=== PATIENT | female | born 1985 | race Caucasian/White ===

== ENCOUNTER 2023-01-09 13:04 | Observation (INO) | payer OTHER, SELFPAY ==
--- NOTE | 2023-01-09 08:19 | CONS_ITS ---
CONSULTATION DATE: ??01/09/2023 CHIEF COMPLAINT:? Abdominal pain. HISTORY OF PRESENT ILLNESS:? Patient is a 37-year-old female with history of bipolar disorder, hypertension, polycystic kidney disease, who presented to the emergency room today with acute onset of right lower quadrant abdominal pain.? She reports that she was well until late morning, after she got out of the shower, she developed acute onset of a sharp, stabbing pain in the right lower quadrant, quite low, down near the right groin area.? The pain was constant and persistent, was somewhat better when she would lean forward.? She had no associated nausea, vomiting or bowel changes.? She does report a normal bowel movement this morning that was formed without blood.? No melena.? She is eating normally, felt well yesterday and last evening.? Has had no ill contacts.? Because of the persistent pain, she presented to the emergency room where she underwent workup.? She had normal laboratory evaluation with a normal white blood cell count.? She underwent a CT scan of the abdomen and pelvis with IV contrast, which was personally reviewed.? It was read as a dilated, thickened appendix with possible mild fat stranding; however, on my review, I disagree with that interpretation.? She does have an elongated cecum, possibly due to her previous surgery which included a hysterectomy and , but the appendix itself does not appear dilated at all.? There is no fecalith.? No inflammatory changes.? There is a small amount of free fluid down in the pelvis, but not around the area of the appendix.? She was given IV antibiotics by the emergency room, before I talked to them; therefore, she was admitted for observation to monitor her pain or any signs of infection.? Denies aspirin, nonsteroidal anti- inflammatory drug use.? Since the onset of her pain, it is unchanged.? PAST SURGICAL HISTORY: She did have a laparoscopic hysterectomy in 2020.? According to the patient, she reports the ovaries were left in.? Prior to that, she had had a .? No other abdominal surgery. SOCIAL HISTORY:? She does smoke daily.? Patient drink alcohol socially, as well as use cannabis.? She is and a smoker. FAMILY HISTORY:? Positive for hypertension, COPD, congestive heart failure. REVIEW OF SYSTEMS:? Ten system review of systems is negative for recent weight loss or weight gain.? She denies increased fatigue or light-headedness.? Has had no earache or tinnitus.? No sinus congestion.? No sore throat or hoarseness.? No chest pain, palpitations or syncope.? No chronic cough, shortness of breath or hemoptysis.? She has had the abdominal pain.? No nausea or vomiting.? No diarrhea.? No decreased caliber of stool.? No melena, hematochezia or bright red blood per rectum.? No dysuria, frequency, urgency or hematuria.? No headaches, seizures or tremors.? No easy bruising or bleeding.? No heat or cold intolerance.? No polydipsia, polyphagia or polyuria. PHYSICAL EXAM:? VITAL SIGNS:? She is afebrile.? Blood pressure is 151/93. ?Heart rate is 62 and regular.? Respiratory rate is 18.? O2 saturation is 98% on room air.? GENERAL:? In general, she is a well developed, well nourished female, in no acute distress. HEENT:? Normocephalic, atraumatic.? Sclerae anicteric.? Conjunctiva not injected.? Oral mucosa is moist. NECK:? Supple.? There is no adenopathy, thyromegaly or JVD. LUNGS:? Clear bilaterally.? CARDIAC EXAM:? Regular rhythm and rate without appreciable murmurs, rubs or gallops. ABDOMEN:? Obese.? There are normal bowel sounds.? It is non-distended.? There is mild tenderness, somewhat subjective, in the very lower right lower quadrant, in the area of a her scar, lateral aspect.? There are no palpable masses or skin changes.? No hernias noted.? No CVA tenderness.? SKIN:? Warm and dry without lesions, rashes or ulcers. NEURO EXAM:? Non-focal.? Non-lateralizing.? Patient is awake, alert, oriented with appropriate affect. ASSESSMENT:? A 37-year-old female with acute onset of sharp, low, right side abdominal pain in the area of previous scar.? Overall history, laboratory findings and CT findings are not consistent with acute appendicitis.? Most likely, this represents either scar tissue, small ovarian cyst.? Since she has already been treated with antibiotics, I would recommend continuing these so as not to complicate the picture.? Certainly, early appendicitis, which I do not believe this, can be treated well and adequately with antibiotics.? So, likely continue these for five days.? As long as she is doing well tomorrow, she should be able to be discharged on a course of outpatient Augmentin, and I would follow up with her as an outpatient, in the office, to make sure her symptoms have resolved.? Overall, I think changes interpreted by the radiologist were all due to patient?s previous surgery and do not represent any acute inflammatory process in the appendix.? CC:? Sarwat Verma M.D. ? MTDDiamond
[2023-01-09 13:10] VITALS: BP 131/71; PULSE 50; RESP 16; TEMP 36.4; O2SAT 99; BMI 38.3
--- NOTE | 2023-01-09 13:19 | ED_ITS ---
HPI - Abdominal Pain General Chief Complaint: Abdominal Pain Stated Complaint: RIGHT SIDE PAIN Time Seen by Provider: 01/09/23 13:10 Source: patient Mode of arrival: Wheelchair Limitations: no limitations History of Present Illness HPI narrative: patient is a 37-year-old female with a history of previous hysterectomy who presents to the emergency department for the evaluation of right lower quadrant pain that began this morning. She states the pain began suddenly. She states the pain is worse with movement and walking. She has been nauseous but has had no vomiting or diarrhea. She denies urinary symptoms. She has had no fevers or upper respiratory symptoms. No medications taken prior to arrival. She denies any other abdominal surgeries other than hysterectomy two years ago. Related Data Home Medications Medication Instructions Recorded Confirmed amlodipine 10 mg tablet mg 01/09/23 buspirone 5 mg tablet mg 01/09/23 carvedilol 12.5 mg tablet mg 01/09/23 olanzapine 5 mg tablet mg 01/09/23 Allergies Allergy/AdvReac Type Severity Reaction Status Date / Time No Known Drug Allergies Allergy Verified 01/09/23 13:10 Review of Systems ROS Constitutional Denies: fever or chills Ears, nose, mouth, and throat Denies: throat pain or neck pain Cardiovascular Denies: chest pain Respiratory Denies: shortness of breath or cough Gastrointestinal Reports: abdominal pain and nausea; Denies: vomiting Genitourinary Denies: painful urination Musculoskeletal Denies: back pain or neck pain Integumentary/Breast Denies: rash Neurological Denies: headache PFSH PFSH Social History Smoking status: Current every day smoker Exam Narrative Exam Narrative: Gen.: Awake, alert, in no distress Head: Normocephalic, atraumatic ENT: Moist mucous membranes Respiratory: No respiratory distress Gastrointestinal: Abdomen is soft, obese, tender in the suprapubic and right lower quadrant of the abdomen with guarding Extremities: Moves extremities equally Psych: Normal mood and affect Neuro: No focal neuro deficit Skin: Warm, dry, intact Constitutional Vital Signs - 24 hr 01/09/23 13:10 Temperature 97.6 F Pulse Rate [Monitor] 50 L Respiratory Rate 16 Blood Pressure [Right Arm] 131/71 H Pulse Oximetry 99 Course Vital Signs Vital signs: Vital Signs Temperature 97.6 F 01/09/23 13:10 Pulse Rate 50 L 01/09/23 13:10 Respiratory Rate 16 01/09/23 13:10 Blood Pressure 131/71 H 01/09/23 13:10 Pulse Oximetry 99 01/09/23 13:10 Temperature 97.6 F 01/09/23 13:10 Pulse Rate 50 L 01/09/23 13:10 Respiratory Rate 16 01/09/23 13:10 Blood Pressure 131/71 H 01/09/23 13:10 Pulse Oximetry 99 01/09/23 13:10 MDM - Abdominal Pain MDM Narrative Medical decision making narrative: patient medicated with IV Dilaudid, Toradol, Zofran. Lab studies show no leukocytosis, otherwise unremarkable. CT of the abdomen with IV contrast shows a patient has acute appendicitis without complication. She is treated with IV Zosyn and general surgery was contacted. she had a couple of coffee at 8:30am and some water prior to arrival, she has not eaten today. Dr. Bedolla requested that the patient be admitted to hospitalist service with general surgery consult. Patient admitted at this time to Dr. Verma for further evaluation and treatment. Medical Records Attestation: I reviewed the patient's medical records. Lab Data Attestation: I reviewed the patient's lab results. Labs: Lab Results 01/09/23 01/09/23 Range/Units 13:26 15:30 WBC 9.4 (4.0-11.0) 10^3/uL RBC 4.76 (4.20-5.40) 10^6/uL Hgb 14.2 (12.0-16.0) g/dL Hct 42.9 (36.0-48.0) % MCV 90.1 (81.0-99.0) fL MCH 29.8 (26.7-34.0) pg MCHC 33.1 (29.9-35.2) g/dL RDW 13.0 (11.0-15.0) % Plt Count 337 (150-450) 10^3/uL MPV 9.9 (9.5-13.5) fL Neut % (Auto) 72.6 (43.0-75.0) % Lymph % (Auto) 18.9 L (20.5-60.0) % [place] % (Auto) 6.2 (1.7-12.0) % Eos % (Auto) 1.5 (0.9-7.0) % Baso % (Auto) 0.5 (0.2-2.0) % Neut # (Auto) 6.8 H (1.4-6.5) 10^3/uL Lymph # (Auto) 1.8 (1.2-3.8) 10^3/uL [place] # (Auto) 0.6 (0.3-0.8) 10^3/uL Eos # (Auto) 0.1 (0.0-0.7) 10^3/uL Baso # (Auto) 0.1 (0.0-0.1) 10^3/uL Abs Immat Gran (auto) 0.03 (0.00-0.03) 10^3/uL Imm/Tot Granulo (auto) 0.3 (0.0-0.5) % Sodium 137 (136-145) mmol/L Potassium 3.6 (3.5-5.1) mmol/L Chloride 103 (98-107) mmol/L Carbon Dioxide 24.6 (21.0-32.0) mmol/L Anion Gap 13.0 BUN 10.0 (7.0-18.0) mg/dL Creatinine 0.94 (0.55-1.02) mg/dL Est GFR ( Amer) >60 (>=60) Est GFR (Non-Af Amer) >60 (>=60) BUN/Creatinine Ratio 10.6 Glucose 112 H (74-106) mg/dL Lactate 1.2 (0.4-2.0) mmol/L Calcium 9.3 (8.5-10.1) mg/dL Total Bilirubin 0.4 (0.2-1.0) mg/dL AST 17 (15-37) U/L ALT 14 (14-59) U/L Alkaline Phosphatase 108 (46-116) U/L Total Protein 7.5 (6.4-8.2) g/dL Albumin 3.8 (3.4-5.0) g/dL Globulin 3.7 g/dL Albumin/Globulin Ratio 1.0 Lipase 62.0 L (73.0-393.0) U/L Urine Color Lt. yellow (YELLOW) Urine Clarity Clear (CLEAR) Urine pH 7.0 (5.0-9.0) Ur Specific [place] 1.010 (1.005-1.025) Urine Protein Negative (NEG/TRACE) mg/dL Urine Glucose (UA) Negative (NEGATIVE) mg/dL Urine Ketones 15 A (NEGATIVE) mg/dL Urine Occult Blood Negative (NEGATIVE) Urine Nitrite Negative (NEGATIVE) Urine Bilirubin Negative (NEGATIVE) Urine Urobilinogen 0.2 (0.2-1.0) EU/dL Ur Leukocyte Esterase Negative (NEGATIVE) Imaging Data CT scan - abdomen: Attestation: I have reviewed the pertinent imaging results. Discharge Plan Discharge Chief Complaint: Abdominal Pain Clinical Impression: Acute appendicitis Patient Disposition: Admitted as Observation Time of Disposition Decision: 15:24 Condition: Good
[2023-01-09] MEDS: ONDANSETRON PF 4 MG/2 ML VIAL IV (13:30)
[2023-01-09] MEDS: 0.9 % SODIUM CHLORIDE 1,000 ML 1000 ML IV (13:30)
[2023-01-09] MEDS: HYDROMORPHONE HCL 0.5 MG/0.5 ML SYRINGE 1 MG IV (13:30)
[2023-01-09 13:37] LABS: Basophils Absolute Auto 0.1 10^3/uL (0.0-0.1); Basophils Percent Auto 0.5 % (0.2-2.0); Eosinophils Absolute Auto 0.1 10^3/uL (0.0-0.7); Eosinophils Percent Auto 1.5 % (0.9-7.0); Hematocrit 42.9 % (36.0-48.0); Hemoglobin 14.2 g/dL (12.0-16.0); Immature Granulocytes Abs Auto 0.03 10^3/uL (0.00-0.03); Immature Granulocytes Pct Auto 0.3 % (0.0-0.5); Lymphocytes Absolute Auto 1.8 10^3/uL (1.2-3.8); Lymphocytes Percent Auto 18.9 % (20.5-60.0); Mean Corpuscular HGB Conc 33.1 g/dL (29.9-35.2); Mean Corpuscular Hemoglobin 29.8 pg (26.7-34.0); Mean Corpuscular Volume 90.1 fL (81.0-99.0); Mean Platelet Volume 9.9 fL (9.5-13.5); Monocytes Absolute Auto 0.6 10^3/uL (0.3-0.8); Monocytes Percent Auto 6.2 % (1.7-12.0); Neutrophils Absolute Auto 6.8 10^3/uL (1.4-6.5); Neutrophils Percent Auto 72.6 % (43.0-75.0); Platelet Count 337 10^3/uL (150-450); Red Blood Count 4.76 10^6/uL (4.20-5.40); White Blood Count 9.4 10^3/uL (4.0-11.0)
[2023-01-09 13:52] LABS: Alanine Aminotransferase 14 U/L (14-59); Albumin Level 3.8 g/dL (3.4-5.0); Alkaline Phosphatase 108 U/L (46-116); Aspartate Amino Transferase 17 U/L (15-37); BUN Creatinine Ratio 10.6; Bilirubin Total 0.4 mg/dL (0.2-1.0); Calcium 9.3 mg/dL (8.5-10.1); Carbon Dioxide 24.6 mmol/L (21.0-32.0); Chloride 103 mmol/L (98-107); Estimated GFR (African America >60 (>=60); Estimated GFR (Non-African Ame >60 (>=60); Globulin 3.7 g/dL; Glucose 112 mg/dL (74-106); Potassium 3.6 mmol/L (3.5-5.1); Sodium 137 mmol/L (136-145); Total Protein 7.5 g/dL (6.4-8.2)
[2023-01-09 13:54] LABS: Lactate/Lactic Acid 1.2 mmol/L (0.4-2.0)
--- NOTE | 2023-01-09 14:00 | CT_ITS ---
The [address] [address] Patient Name: BENEDICT FERREIRA MRN: [id number] date: 1985 Sex: F Assigned Patient Location: ER Current Patient Location: ER Accession/Order Number: [id number] Exam Date: 01/09/2023 14:17 Report Date: 01/09/2023 14:45 At the request of: JOLENE OBANDO Procedure: CT abdomen pelvis w con EXAM: CT abdomen pelvis w con HISTORY: acute appendicitis COMPARISON: None. TECHNIQUE: Axial CT images were obtained of the abdomen and pelvis with intravenous contrast. Multiplanar reconstructions were performed. ABDOMEN/PELVIS FINDINGS: Lower Chest: Unremarkable. Liver: Normal enhancement and contour. Biliary/Gallbladder: Unremarkable. Pancreas: Unremarkable. Spleen: Unremarkable. Adrenal Glands: Unremarkable. Kidneys: Numerous small cysts are present in the kidneys bilaterally, most of which are too small to characterize. No renal calculus or hydronephrosis is identified.. Gastrointestinal/Peritoneum: The appendix is abnormally dilated and thick-walled measuring 1.5 cm in diameter. There is trace periappendiceal fat stranding. There are no dilated loops of bowel. No abscess or free air. There is a trace volume of free fluid in the pelvis. Vascular: Unremarkable. Lymph Nodes: No enlarged lymph nodes by CT size criteria. Pelvic Organs: Prior hysterectomy. Bladder: Unremarkable. Bones: No acute osseous abnormality. Soft tissues: Unremarkable. IMPRESSION: 1. Acute appendicitis without complication. 2. Small volume of free fluid in the pelvis. 3. Prior hysterectomy. 4. Numerous small cysts present in the kidneys, possibly due to genetic or acquired renal conditions. Electronically authenticated by: ROBERTA SANCHEZ Date: 01/09/2023 14:45
[2023-01-09] MEDS: KETOROLAC TROMETHAMINE 30 MG/ML VIAL IVP ×2 (15:07→21:59)
[2023-01-09] MEDS: PIPERACILLIN SODIUM/TAZOBACTAM 4.5 GM in 0.9 % SODIUM CHLORIDE 50 ML IV (15:08)
[2023-01-09 15:38] LABS: Bilirubin Urine NEGATIVE (NEGATIVE); Blood Urine NEGATIVE (NEGATIVE); Clarity Urine CLEAR (CLEAR); Color Urine LT. YELLOW (YELLOW); Glucose Urine UA NEGATIVE (NEGATIVE); Ketones Urine 15 mg/dL (NEGATIVE); Leukocyte Esterase Urine NEGATIVE (NEGATIVE); Nitrite Urine NEGATIVE (NEGATIVE); Protein Urine NEGATIVE (NEG/TRACE); Urine Microscopic Indicated NO; Urobilinogen Urine 0.2 EU/dL (0.2-1.0)
[2023-01-09 17:20] VITALS: BP 151/93; PULSE 52; RESP 20; TEMP 36.8; O2SAT 98; BMI 37.8
[2023-01-09] MEDS: LACTATED RINGER'S SOLUTION 1,000 ML 125 ML IV (18:30)
--- NOTE | 2023-01-09 18:30 | PM.GSCN ---
History of Present Illness Consult details Consult date: 01/09/23 Reason for consult: abdominal pain Requesting physician: Sarwat Verma Narrative: patient seen/examined/chart and ct scan images reviewed/consult dictated; no evidence of acute appendicitis by history, labs or ct images; no evidence of dilation or inflammation of the appendix, radiology findings likely due to elongated cecum/ chronic changes from previous abd operations; since she has already received antibiotics, I would continue them for 5 days, early uncomplicated appendicitis, which I don't think this is, can be well treated with antibiotics alone; I will recheck her in the morning. [facility] Medical History (Updated 01/09/23 @ 17:52 by Marin Bedolla MD) Surgical History (Updated 01/09/23 @ 17:41 by Elodia Gardner) Family History (Updated 01/09/23 @ 17:48 by Elodia Gardner) Father Family history of CHF (congestive heart failure) Mother Family history of cancer Other Family history of hypertension Social History (Updated 01/09/23 @ 17:47 by Elodia Gardner) Within the past year, how often did you have a drink containing alcohol: 2-4 times a month Within the past year, how often did you have six or more drinks on one occasion: never Smoking status: Current every day smoker Non-prescribed substance use: cannabis (any form) Previous occupational history: [employer] Highest level of school completed/degree received: Associate degree: academic program Do you want help with school or training: No Are you now , , , , never or living with a partner: Little interest or pleasure in doing things: not at all Feeling down, depressed, or hopeless: not at all Feel stressed/tense/nervous/anxious/difficulty sleeping: only a little Do you think of yourself as: straight/heterosexual Gender Identity: female Meds Home Medications and Allergies Home Medications Medication Instructions Recorded Confirmed Type amlodipine 10 mg tablet 10 mg PO DAILY 01/09/23 01/09/23 History buspirone 5 mg tablet 5 mg PO DAILY 01/09/23 01/09/23 History carvedilol 12.5 mg tablet 12.5 mg PO DAILY 01/09/23 01/09/23 History olanzapine 5 mg tablet 5 mg PO DAILY 01/09/23 01/09/23 History Allergies Allergy/AdvReac Type Severity Reaction Status Date / Time No Known Drug Allergies Allergy Verified 01/09/23 13:10 Exam Constitutional Vital Signs - 24 hr 01/09/23 13:10 01/09/23 17:20 Temperature 97.6 F 98.2 F Pulse Rate 52 L Pulse Rate [Monitor] 50 L Respiratory Rate 16 20 Blood Pressure [Right Arm] 131/71 H 151/93 H Pulse Oximetry 99 98 Oxygen Delivery Method Room Air Results Labs Labs: Abnormal lab results 01/09/23 01/09/23 Range/Units 13:26 15:30 Lymph % (Auto) 18.9 L (20.5-60.0) % Neut # (Auto) 6.8 H (1.4-6.5) 10^3/uL Glucose 112 H (74-106) mg/dL Lipase 62.0 L (73.0-393.0) U/L Urine Ketones 15 A (NEGATIVE) mg/dL Diabetes panel 01/09/23 Range/Units 13:26 Sodium 137 (136-145) mmol/L Potassium 3.6 (3.5-5.1) mmol/L Chloride 103 (98-107) mmol/L Carbon Dioxide 24.6 (21.0-32.0) mmol/L BUN 10.0 (7.0-18.0) mg/dL Creatinine 0.94 (0.55-1.02) mg/dL Glucose 112 H (74-106) mg/dL Calcium 9.3 (8.5-10.1) mg/dL AST 17 (15-37) U/L ALT 14 (14-59) U/L Alkaline Phosphatase 108 (46-116) U/L Total Protein 7.5 (6.4-8.2) g/dL Albumin 3.8 (3.4-5.0) g/dL Calcium panel 01/09/23 Range/Units 13:26 Calcium 9.3 (8.5-10.1) mg/dL Albumin 3.8 (3.4-5.0) g/dL Pituitary panel 01/09/23 Range/Units 13:26 Sodium 137 (136-145) mmol/L Potassium 3.6 (3.5-5.1) mmol/L Chloride 103 (98-107) mmol/L Carbon Dioxide 24.6 (21.0-32.0) mmol/L BUN 10.0 (7.0-18.0) mg/dL Creatinine 0.94 (0.55-1.02) mg/dL Glucose 112 H (74-106) mg/dL Calcium 9.3 (8.5-10.1) mg/dL Adrenal panel 01/09/23 Range/Units 13:26 Sodium 137 (136-145) mmol/L Potassium 3.6 (3.5-5.1) mmol/L Chloride 103 (98-107) mmol/L Carbon Dioxide 24.6 (21.0-32.0) mmol/L BUN 10.0 (7.0-18.0) mg/dL Creatinine 0.94 (0.55-1.02) mg/dL Glucose 112 H (74-106) mg/dL Calcium 9.3 (8.5-10.1) mg/dL Total Bilirubin 0.4 (0.2-1.0) mg/dL AST 17 (15-37) U/L ALT 14 (14-59) U/L Alkaline Phosphatase 108 (46-116) U/L Total Protein 7.5 (6.4-8.2) g/dL Albumin 3.8 (3.4-5.0) g/dL All other labs normal.
[2023-01-09] MEDS: MORPHINE SULFATE 2 MG/ML SYRINGE IV (18:31)
[2023-01-09 20:00] VITALS: PULSE 52; RESP 20
[2023-01-09 20:50] VITALS: O2SAT 98
[2023-01-09 22:00] VITALS: BP 161/96; PULSE 64; RESP 18; TEMP 37.6; O2SAT 95
[2023-01-09 22:14] VITALS: O2SAT 99
[2023-01-10] MEDS: ONDANSETRON PF 4 MG/2 ML VIAL IV (00:17)
[2023-01-10] MEDS: MORPHINE SULFATE 2 MG/ML SYRINGE IV (00:17)
[2023-01-10] MEDS: PIPERACILLIN SODIUM/TAZOBACTAM 3.375 GM in 0.9 % SODIUM CHLORIDE 50 ML IV ×2 (00:19→06:44)
[2023-01-10 01:07] VITALS: PULSE 66; O2SAT 96
[2023-01-10 01:55] VITALS: PULSE 80; O2SAT 95
[2023-01-10] MEDS: LACTATED RINGER'S SOLUTION 1,000 ML 125 ML IV (02:17)
[2023-01-10 03:53] VITALS: PULSE 66; O2SAT 97
[2023-01-10 04:42] VITALS: BP 159/95; PULSE 59; RESP 20; TEMP 36.6; O2SAT 96
[2023-01-10 04:45] LABS: Basophils Percent Auto 0.3 % (0.2-2.0); Eosinophils Percent Auto 0.2 % (0.9-7.0); Hematocrit 38.2 % (36.0-48.0); Hemoglobin 13.1 g/dL (12.0-16.0); Immature Granulocytes Abs Auto 0.03 10^3/uL (0.00-0.03); Immature Granulocytes Pct Auto 0.3 % (0.0-0.5); Lymphocytes Absolute Auto 1.6 10^3/uL (1.2-3.8); Lymphocytes Percent Auto 16.3 % (20.5-60.0); Mean Corpuscular HGB Conc 34.3 g/dL (29.9-35.2); Mean Corpuscular Hemoglobin 30.5 pg (26.7-34.0); Mean Corpuscular Volume 88.8 fL (81.0-99.0); Mean Platelet Volume 10.2 fL (9.5-13.5); Monocytes Absolute Auto 0.6 10^3/uL (0.3-0.8); Monocytes Percent Auto 6.6 % (1.7-12.0); Neutrophils Absolute Auto 7.4 10^3/uL (1.4-6.5); Neutrophils Percent Auto 76.3 % (43.0-75.0); Platelet Count 277 10^3/uL (150-450); White Blood Count 9.7 10^3/uL (4.0-11.0)
[2023-01-10 05:07] LABS: Alanine Aminotransferase 23 U/L (14-59); Albumin Globulin Ratio 1.2; Albumin Level 3.6 g/dL (3.4-5.0); Alkaline Phosphatase 93 U/L (46-116); Anion Gap 15.3; Aspartate Amino Transferase 13 U/L (15-37); BUN Creatinine Ratio 4.1; Bilirubin Total 0.4 mg/dL (0.2-1.0); Calcium 9.2 mg/dL (8.5-10.1); Carbon Dioxide 24.2 mmol/L (21.0-32.0); Chloride 103 mmol/L (98-107); Estimated GFR (African America >60 (>=60); Estimated GFR (Non-African Ame >60 (>=60); Globulin 3.1 g/dL; Glucose 101 mg/dL (74-106); Potassium 3.5 mmol/L (3.5-5.1); Sodium 139 mmol/L (136-145); Total Protein 6.7 g/dL (6.4-8.2)
[2023-01-10] MEDS: KETOROLAC TROMETHAMINE 30 MG/ML VIAL IVP (06:44)
--- NOTE | 2023-01-10 08:47 | PM.GSPN ---
Progress Note: A&P Assessment and Plan (1) Abdominal pain in female: Onset Date: ~01/09/23 Plan pain improving; no evidence of infection, normal wbc, no fevers; more consistent with ruptured cyst; advance diet; saline lock IV; change to scheduled ibuprofen for pain; likely discharge later today, will need 5 days of Augmentin as outpatient; f/u with me in the office; call sooner if problems/questions. Subjective Subjective Interval history: some sleep overnight; pain improved, but still constant pain low in right abd; nauea after morphine around midnight, no emesis; no bms, voiding well; no fevers overnight, normal vitals. Exam Narrative Exam Narrative: abd: obese, soft, normal bs; decreased tenderness right lower quadrant, no peritoneal signs, no masses Constitutional Vital Signs - 24 hr 01/09/23 13:10 01/09/23 17:20 01/09/23 20:00 Temperature 97.6 F 98.2 F Pulse Rate 52 L Pulse Rate [Monitor] 50 L 52 L Respiratory Rate 16 20 20 Blood Pressure [Right Arm] 131/71 H 151/93 H Pulse Oximetry 99 98 Oxygen Delivery Method Room Air 01/09/23 20:50 01/09/23 22:00 01/09/23 22:14 Temperature 99.6 F Pulse Rate 64 Pulse Rate [Monitor] Respiratory Rate 18 Blood Pressure [Right Arm] 161/96 H Pulse Oximetry 98 95 99 Oxygen Delivery Method Room Air 01/10/23 01:07 01/10/23 01:55 01/10/23 03:53 Temperature Pulse Rate 66 80 66 Pulse Rate [Monitor] Respiratory Rate Blood Pressure [Right Arm] Pulse Oximetry 96 95 97 Oxygen Delivery Method 01/10/23 04:42 Temperature 97.9 F Pulse Rate 59 L Pulse Rate [Monitor] Respiratory Rate 20 Blood Pressure [Right Arm] 159/95 H Pulse Oximetry 96 Oxygen Delivery Method Room Air
--- NOTE | 2023-01-10 10:14 | PM.HP ---
H&P: HPI History of Present Illness Chief complaint: Abdominal pain Narrative: 37 y/o female to ER with abdominal pain. Sudden onset of RLQ pain in am. Pain worse with movement or walking. No radiation of pain to other parts of abdomen. Severe nausea but no emesis or diarrhea. Continued pain and to ER. Afebrile. CT with questionable appendicitis and discussed with surgeon. Admitted for observation. Started Zosyn and NPO. General surgery consulted and felt not appendicitis. Did well overnight. Pain much improved and ambulating well. Afebrile and normal WBC. Review of Systems ROS Constitutional Denies: fever, chills or night sweats Cardiovascular Denies: chest pain or edema Respiratory Denies: shortness of breath, cough or wheezing Gastrointestinal Reports: abdominal pain and nausea; Denies: vomiting or diarrhea Genitourinary Denies: painful urination [facility] Medical History (Updated 01/10/23 @ 08:53 by Marin Bedolla MD) Surgical History (Updated 01/09/23 @ 17:41 by Elodia Gardner) Family History (Updated 01/09/23 @ 17:48 by Elodia Gardner) Father Family history of CHF (congestive heart failure) Mother Family history of cancer Other Family history of hypertension Social History (Updated 01/09/23 @ 17:47 by Elodia Gardner) Within the past year, how often did you have a drink containing alcohol: 2-4 times a month Within the past year, how often did you have six or more drinks on one occasion: never Smoking status: Current every day smoker Non-prescribed substance use: cannabis (any form) Previous occupational history: [employer] Highest level of school completed/degree received: Associate degree: academic program Do you want help with school or training: No Are you now , , , , never or living with a partner: Little interest or pleasure in doing things: not at all Feeling down, depressed, or hopeless: not at all Feel stressed/tense/nervous/anxious/difficulty sleeping: only a little Do you think of yourself as: straight/heterosexual Gender Identity: female Meds Home Medications and Allergies Home Medications Medication Instructions Recorded Confirmed Type amlodipine 10 mg tablet 10 mg PO DAILY 01/09/23 01/09/23 History buspirone 5 mg tablet 5 mg PO DAILY 01/09/23 01/09/23 History carvedilol 12.5 mg tablet 12.5 mg PO DAILY 01/09/23 01/09/23 History olanzapine 5 mg tablet 5 mg PO DAILY 01/09/23 01/09/23 History amoxicillin 875 mg-potassium 1 tab PO BID 10 days #20 tabs 01/10/23 Rx clavulanate 125 mg tablet Allergies Allergy/AdvReac Type Severity Reaction Status Date / Time No Known Drug Allergies Allergy Verified 01/09/23 13:10 Exam Constitutional Vital Signs - 24 hr 01/09/23 13:10 01/09/23 17:20 01/09/23 20:00 Temperature 97.6 F 98.2 F Pulse Rate 52 L Pulse Rate [Monitor] 50 L 52 L Respiratory Rate 16 20 20 Blood Pressure [Right Arm] 131/71 H 151/93 H Pulse Oximetry 99 98 Oxygen Delivery Method Room Air 01/09/23 20:50 01/09/23 22:00 01/09/23 22:14 Temperature 99.6 F Pulse Rate 64 Pulse Rate [Monitor] Respiratory Rate 18 Blood Pressure [Right Arm] 161/96 H Pulse Oximetry 98 95 99 Oxygen Delivery Method Room Air 01/10/23 01:07 01/10/23 01:55 01/10/23 03:53 Temperature Pulse Rate 66 80 66 Pulse Rate [Monitor] Respiratory Rate Blood Pressure [Right Arm] Pulse Oximetry 96 95 97 Oxygen Delivery Method 01/10/23 04:42 Temperature 97.9 F Pulse Rate 59 L Pulse Rate [Monitor] Respiratory Rate 20 Blood Pressure [Right Arm] 159/95 H Pulse Oximetry 96 Oxygen Delivery Method Room Air Documenting provider has reviewed patient's vital signs: yes Common normals: no apparent distress, oriented x3 and alert HENMT Common normals: normocephalic Eye Common normals: PERRL and EOMs intact bilaterally Respiratory Common normals: clear to auscultation bilaterally Cardio Common normals: regular rate, regular rhythm, no gallops, no murmurs and no rub GI Common normals: soft to palpation Auscultation: normoactive bowel sounds Palpation: tender (Mild TTP ) Details: RLQ; no guarding Extremity General: no edema Results Labs Labs: Short CBC 01/09/23 01/10/23 Range/Units 13:26 04:10 WBC 9.4 9.7 (4.0-11.0) 10^3/uL Hgb 14.2 13.1 (12.0-16.0) g/dL Hct 42.9 38.2 (36.0-48.0) % Plt Count 337 277 (150-450) 10^3/uL BMP 01/09/23 01/10/23 13:26 04:10 Sodium 137 139 Potassium 3.6 3.5 Chloride 103 103 Carbon Dioxide 24.6 24.2 BUN 10.0 3.0 L Creatinine 0.94 0.74 Glucose 112 H 101 Calcium 9.3 9.2 Liver Function 01/09/23 01/10/23 Range/Units 13:26 04:10 Total Bilirubin 0.4 0.4 (0.2-1.0) mg/dL AST 17 13 L (15-37) U/L ALT 14 23 (14-59) U/L Alkaline Phosphatase 108 93 (46-116) U/L Albumin 3.8 3.6 (3.4-5.0) g/dL Urine 01/09/23 Range/Units 15:30 Urine Color Lt. yellow (YELLOW) Urine Clarity Clear (CLEAR) Urine pH 7.0 (5.0-9.0) Ur Specific [place] 1.010 (1.005-1.025) Urine Protein Negative (NEG/TRACE) mg/dL Urine Glucose (UA) Negative (NEGATIVE) mg/dL Imaging CT scan - abdomen: Attestation: I have reviewed the pertinent imaging results. Assessment and Plan Assessment and Plan (1) Abdominal pain in female: Onset Date: ~01/09/23 Plan 1. RLQ abdominal pain 2. HTN 3. Bipolar Admitted with pain and surgery consulted. [place] not appendicitis. Pain much improved and febrile. Advanced diet and tolerated well. No worsening pain and normal BM. Discharge home in stable condition. Will take augmentin x 10 days. Resume home medication as directed. F/u with surgeon in 1-2 weeks.
--- NOTE | 2023-01-12 10:19 | CM.DCFOLLOWU ---
Person spoke with: patient How are you feeling? better How is your pain? still some pain Did you understand your discharge instructions? yes Do you have any questions about your discharge instructions? no Were you given any prescriptions at discharge? yes Were you able to get your prescriptions filled? yes Do you understand how to take your medications as ordered? yes Do you have any questions about your follow up appointment and do you plan to keep your follow up appointment? no questions, follow up with PCP 01/13/23, will call Graeme Clayton's office for follow up Is there anything else that you would like to discuss? no Questions/Comments/Concerns/Other:
== END 2023-01-10 12:23 | disposition home or self-care (01) ==
LOC: ER 15:24 → MS 17:18
PROVIDERS: Physician Assistant; Admitting Provider Family Medicine; Emergency Provider Emergency Medicine Emergency Medical Services; PCP Family Medicine; Visit Provider Family Medicine
DX: R10.31 Right lower quadrant pain (principal); I10 Essential (primary) hypertension; F31.9 Bipolar disorder, unspecified; Q61.3 Polycystic kidney, unspecified; F17.210 Nicotine dependence, cigarettes, uncomplicated; F12.90 Cannabis use, unspecified, uncomplicated; Z79.899 Other long term (current) drug therapy; Z90.710 Acquired absence of both cervix and uterus
CPT/HCPCS: 36415; 74177; 80053; 81003; 83605; 83690; 84703; 85025; 96365; 96366; 96375; 96376; 99285; G0378; J1170; Q9967